=== PATIENT | male | born 1955 | race Caucasian/White ===

== ENCOUNTER 2025-07-14 17:28 | Emergency (ER) | payer OTHER ==
[~2025-07-14] VITALS: Ht 182.9 cm; Wt 78.4 kg
[2025-07-14 17:54] VITALS: TEMP 98.9
[2025-07-14 22:04] VITALS: BP 154/91; PULSE 82; RESP 18; O2SAT 96
== END 2025-07-14 22:06 | disposition home or self-care (01) ==
LOC: EMS 17:47
DX: F32.A Depression, unspecified (principal); N18.9 Chronic kidney disease, unspecified; Z86.73 Personal history of transient ischemic attack (TIA), and cerebral infarction without residual deficits; Z88.8 Allergy status to other drugs, medicaments and biological substances
CPT/HCPCS: 99285; Z7502